=== PATIENT | female | born 2000 | race American Indian/Alaskan Native ===

== ENCOUNTER 2020-08-30 01:05 | Inpatient (IN) | payer MEDICAID, OTHER ==
[2020-08-30] MEDS ORDERED: ONDANSETRON 4 MG/2 ML INJ IV PRN ×2 (02:11→04:56)
[2020-08-30] MEDS ORDERED: miSOPROStol 200 MCG TAB PR PRN (02:11)
[2020-08-30] MEDS ORDERED: METHYLERGONOVINE MALEATE 0.2 MG/ML VIAL IM PRN (02:11)
[2020-08-30] MEDS ORDERED: CARBOPROST TROMETHAMINE 250 MCG/1 ML INJ IM PRN (02:11)
[2020-08-30] MEDS ORDERED: BUTORPHANOL 2 MG/1 ML INJ IV PRN (02:11)
[2020-08-30] MEDS ORDERED: OXYTOCIN 10 UNIT/1 ML INJ IM PRN (02:11)
[2020-08-30] MEDS ORDERED: MINERAL OIL 30 ML ORAL LIQD PO PRN (02:11)
[2020-08-30] MEDS ORDERED: ePHEDrine SULFATE 50 MG/1 ML INJ IV PRN ×2 (02:11→03:48)
[2020-08-30] MEDS ORDERED: TERBUTALINE 1 MG/1 ML INJ SUB-Q PRN (02:11)
[2020-08-30] MEDS ORDERED: LIDOCAINE (2%) 20 MG/1 ML VIAL 20 ML MDV INFILTRATI ONE (02:11)
[2020-08-30] MEDS ORDERED: AMPICILLIN/NS 2 GM/100 ML 2 GM/100 ML BAG IV ONE (02:11)
[2020-08-30] MEDS ORDERED: LOPERAMIDE 2 MG CAP PO PRN (02:11)
[2020-08-30] MEDS ORDERED: LACTATED RINGERS 1,000 ML IV SCH (02:15)
[2020-08-30 02:50] LABS: Hemoglobin 8.6 gm/dl (10.1-14.3); Mean Corpuscular HGB Conc 32 % (30-34); Mean Corpuscular Volume 74 fl (79-97); Platelet Count 209 K/mm3 (140-440); Red Blood Count 3.64 M/mm3 (3.65-5.03)
[2020-08-30 02:51] LABS: Red Cell Distribution Width 22.6 % (13.2-15.2)
[2020-08-30] MEDS ORDERED: OXYTOCIN DRIP 30 UNITS/500 ML BAG IV SCH (03:00)
--- NOTE | 2020-08-30 03:41 | Anesthesia Consultation ---
Anesthesia Consult and Med Hx Date of service: 08/30/20 - Airway Anesthetic Teeth Evaluation: Poor Mental/Hyoid Distance: Adequate Mallampati Class: Class II Intubation Access Assessment: Probably Good - Pulmonary Exam CTA: Yes - Cardiac Exam Cardiac Exam: RRR - Pre-Operative Health Status ASA Pre-Surgery Classification: ASA2 Proposed Anesthetic Plan: Epidural - Pulmonary Hx Smoking: No Hx Asthma: Yes (last attack as a child) Hx Respiratory Symptoms: No SOB: No COPD: No Home Oxygen Therapy: No Hx Pneumonia: No Hx Sleep Apnea: No - Cardiovascular System Hx Hypertension: No Hx Coronary Artery Disease: No Hx Heart Attack/AMI: No Hx Angina: No Hx Percutaneous Transluminal Coronary Angioplasty (PTCA): No Hx Cardia Arrhythmia: No Hx Pacemaker: No Hx Internal Defibrillator: No Hx Valvular Heart Disease: No Hx Heart Murmur: No Hx Peripheral Vascular Disease: No - Central Nervous System Hx Neuromuscular Disorder: No Hx Seizures: No CVA: No Hx Back Pain: Yes Hx Psychiatric Problems: No - Gastrointestinal Hx Ulcer: No Hx Gastroesophageal Reflux Disease: Yes - Endocrine Hx Renal Disease: No Hx End Stage Renal Disease: No Hx Cirrhosis: No Hx Liver Disease: No Hx Insulin Dependent Diabetes: No Hx Non-Insulin Dependent Diabetes: No Hx Thyroid Disease: No Hx Hypothyroidism: No Hx Hyperthyroidism: No - Hematic Hx Anemia: Yes Hx Sickle Cell Disease: No - Other Systems Hx Alcohol Use: No Hx Substance Use: No Hx Cancer: No Hx Obesity: No
--- NOTE | 2020-08-30 03:42 | Progress Note ---
Labor Epidural - Labor Epidural Start Time: 03:17 Stop Time: 03:27 Performed by:: MANOHAR COTE Procedure: Patient is requesting a laboring epidural for laboring pain. Patient IDed, H&P reviewed, all questions and concerns were answered, and consent was signed. Timeout was performed at bedside. Patient in sitting position. Sterile prep and drape was performed. [3] ml of 1% lidocaine skin wheal at L[3]- L [4]. 18- gauge Tuohy epidural needle was advanced to loss of resistance with saline technique 6cm. Negative CSF negative blood. Epidural catheter advanced to [10] centimeters. [NEGATIVE] Aspiration [NEGATIVE] test dose. Sterile dressing applied. Patient tolerated procedure.
[2020-08-30] MEDS ORDERED: NALOXONE 2 MG/2 ML INJ IV PRN (03:48)
[2020-08-30] MEDS ORDERED: fentaNYL-BUPIV 2 MCG/ML-0.125% 200 MCG/100 ML BAG EPIDURAL SCH (04:00)
--- NOTE | 2020-08-30 04:53 | History and Physical Report ---
History of Present Illness Date of examination: 08/30/20 Date of admission: 08/30/20 02:11 Chief complaint: Contractions History of present illness: 19-year-old G1, P0 at 40+0 weeks who presents in active labor with advanced cervical dilatation. The patient to denies leakage of fluid. records are currently unavailable for review. Past History Past Medical History: asthma Past Surgical History: no surgical history Social history: single - Obstetrical History Expected Date of Delivery: 08/30/20 Actual Gestation: 40 Week(s) 0 Day(s) : 1 Para: 0 Hx # Term Pregnancies: 0 Number of Pregnancies: 0 Spontaneous Abortions: 0 Induced : 0 Number of Living Children: 0 Medications and Allergies Allergies Allergy/AdvReac Type Severity Reaction Status Date / Time No Known Allergies Allergy Verified 08/30/20 02:15 Active Meds: Active Medications Butorphanol Tartrate (Butorphanol 2 Mg/1 Ml Inj) 2 mg IV Q2H PRN PRN Reason: Pain , Severe (7-10) Carboprost Tromethamine (Carboprost Tromethamine 250 Mcg/1 Ml Inj) 250 mcg IM ONCE PRN PRN Reason: Uterine Bleeding Ephedrine Sulfate (Ephedrine Sulfate 50 Mg/1 Ml Inj) 10 mg IV Q2M PRN PRN Reason: Hypotension Ephedrine Sulfate (Ephedrine Sulfate 50 Mg/1 Ml Inj) 10 mg IV Q2M PRN PRN Reason: Hypotension Lactated Ringer's (Lactated Ringers) 1,000 mls @ 125 mls/hr IV DIRECT KENDALL Last Admin: 08/30/20 03:22 Dose: 125 mls/hr Documented by: Oxytocin/Sodium Chloride (Pitocin/Ns 30 Unit/500ml) 30 units in 500 mls @ 40 mls/hr IV TITR KENDALL; Protocol Fentanyl/Bupivacaine/Sodium Chlor (Fentanyl-Bupiv 2 Mcg/Ml-0.125%) 200 mcg in 100 mls @ 12 mls/hr EPIDURAL TITR KENDALL; Protocol Loperamide HCl (Loperamide 2 Mg Cap) 2 mg PO ONCE PRN PRN Reason: give with Hemabate Methylergonovine Maleate (Methylergonovine Maleate 0.2 Mg/Ml Vial) 0.2 mg IM ONCE PRN PRN Reason: Uterine Bleeding Mineral Oil (Mineral Oil 30 Ml Oral Liqd) 30 ml PO QHS PRN PRN Reason: Constipation Misoprostol (Misoprostol 200 Mcg Tab) 800 mcg RI ONCE PRN PRN Reason: Uterine Bleeding Naloxone HCl (Naloxone 2 Mg/2 Ml Inj) 0.2 mg IV Q5M PRN PRN Reason: Respiratory sedation Ondansetron HCl (Ondansetron 4 Mg/2 Ml Inj) 4 mg IV Q8H PRN PRN Reason: Nausea And Vomiting Oxytocin (Oxytocin 10 Unit/1 Ml Inj) 10 unit IM ONCE PRN PRN Reason: Uterine Bleeding Terbutaline Sulfate (Terbutaline 1 Mg/1 Ml Inj) 0.25 mg SUB-Q ONCE PRN PRN Reason: Hyperstimulation/Hypertonicity Review of Systems All systems: negative Genitourinary: pelvic pain, contractions - Vital Signs Vital signs: Vital Signs Pulse BP Pulse Ox 75 138/90 100 08/30/20 01:32 08/30/20 01:32 08/30/20 01:32 Temp Pulse Resp BP Pulse Ox 98.2 F 75 18 147/66 100 08/30/20 01:33 08/30/20 03:35 08/30/20 01:33 08/30/20 03:35 08/30/20 02:17 - Physical Exam Breasts: Positive: deferred Cardiovascular: Regular rate Lungs: Positive: Clear to auscultation Abdomen: Positive: normal appearance Results Result Diagrams: 08/30/20 02:15 Abnormal lab results 08/30/20 Range/Units 02:15 RBC 3.64 L (3.65-5.03) M/mm3 Hgb 8.6 L (10.1-14.3) gm/dl Hct 27.0 L (30.3-42.9) % MCV 74 L (79-97) fl MCH 24 L (28-32) pg RDW 22.6 H (13.2-15.2) % All other labs normal. Assessment and Plan - Patient Problems (1) Active labor at term Current Visit: Yes Status: Acute Plan to address problem: Admit to labor and delivery Initiate IV antibiotics
--- NOTE | 2020-08-30 04:55 | Procedure Note ---
OB Delivery Note - Delivery Date of Delivery: 08/30/20 Surgeon: GEOVANNA ASKEW Estimated blood loss: other (250ml) - Vaginal Delivery presentation: vertex Delivery position: OA Delivery monitor: external FHT, external uterine Route of delivery: Delivery placenta: spontaneous Delivery cord: 3 umbilical vessels Episiotomy: none Delivery laceration: none Anesthesia: epidural Delivery comments: The patient progressed to complete complete +2. Amniotomy was performed with evidence of clear fluid. The patient pushed to deliver a live-born female with Apgars of 8 and 9 weight 7 pounds 2 ounces. After delivery of the head the shoulders delivered without difficulty. The was bulb suctioned and the cord was clamped and cut and the was placed on the patient's abdomen. The placenta delivered spontaneously intact with a three-vessel cord. No lacerations were noted. Estimated blood loss of 250 mL - Infant A at 1 minute: 8 at 5 minutes: 9 Infant Gender: Female (Weight 7 pounds 2 ounces)
[2020-08-30] MEDS ORDERED: diphenhydrAMINE 25 MG CAP PO PRN (04:56)
[2020-08-30] MEDS ORDERED: PROMETHAZINE 25 MG TAB PO PRN (04:56)
[2020-08-30] MEDS ORDERED: ACETAMINOPHEN 325 MG TAB PO PRN (04:56)
[2020-08-30] MEDS ORDERED: LANOLIN/ZINC/DIMETHICONE (LANSINOH) 7 GM TP PRN (04:56)
[2020-08-30] MEDS ORDERED: MAGNESIUM HYDROXIDE (MOM) ORAL LIQD UDC PO PRN (04:56)
[2020-08-30] MEDS ORDERED: WITCH HAZEL/ GLYCERIN PAD TP PRN (04:56)
[2020-08-30] MEDS ORDERED: PROMETHAZINE 25 MG RECT SUPP PR PRN (04:56)
[2020-08-30] MEDS ORDERED: HYDROcodone/ACETAMINOPHEN 5-325 MG TAB PO PRN (04:56)
[2020-08-30] MEDS: IBUPROFEN 600 MG TAB PO SCH ×2 (06:19→14:15)
--- NOTE | 2020-08-30 12:44 | Post Anesthesia Evaluation ---
- Post Anesthesia Evaluation Patient Participated: Yes Airway Patent: Yes Stable Respiratory Function: Yes Nausea/Vomiting: No Temp > 96.8F: Yes Pain Manageable: Yes Adequeate Hydration: Yes Anesthesia Complications: No Block Receding Appropriately: Yes Patient on Ventilator: No
[2020-08-30 16:16] LABS: Hematocrit 23.5 % (30.3-42.9); Hemoglobin 7.3 gm/dl (10.1-14.3)
--- NOTE | 2020-08-31 07:54 | Progress Note ---
Assessment and Plan - Patient Problems (1) Status post normal vaginal delivery Current Visit: Yes Status: Acute Plan to address problem: Pt desires to go home today F/U in office in 6 weeks for routine PPV (2) Anemia Current Visit: Yes Status: Acute Qualifiers: Anemia type: iron deficiency Plan to address problem: Asymptomatic Continue prescribed iron supplementation as directed Increase iron rich foods into diet Subjective - Subjective Date of service: 08/31/20 Principal diagnosis: S/P ; PPD#1 Interval history: 19-year-old G1, P0 at 40+0 weeks who presents in active labor with advanced cervical dilatation. Went on to deliver viable female infant. Patient reports: appetite normal, voiding normally, pain well controlled, flatus, ambulating normally [place]: doing well, nursing well Objective - Vital Signs Latest vital signs: Vital Signs Temp Pulse Resp BP BP Pulse Ox 08/30/20 23:33 98.5 F 79 20 109/73 99 08/30/20 15:33 98.5 F 80 20 131/81 98 08/30/20 12:20 98.5 F 77 18 128/79 97 Intake and Output 08/30/20 08/30/20 08/31/20 15:59 23:59 07:59 Intake Total 120 240 Output Total 500 Balance -380 240 Intake: Oral 120 240 Output: Urine 500 Void 500 Other: Total, Intake Amount 120 240 Total, Output Amount 500 - Exam Breasts: Present: normal Cardiovascular: Present: Regular rate Lungs: Present: Normal air movement Abdomen: Present: soft Uterus: Present: firm, fundal height below umbilicus (U-3) Extremities: Present: tenderness Deep Tendon Reflex Grade: Normal +2 - Labs Labs: Abnormal lab results 08/30/20 Range/Units 15:48 Hgb 7.3 L (10.1-14.3) gm/dl Hct 23.5 L (30.3-42.9) %
--- NOTE | 2020-08-31 08:04 | Discharge Summary ---
Providers - Providers Date of Admission: 08/30/20 02:11 Date of discharge: 08/31/20 Attending physician: GEOVANNA ASKEW Primary care physician: GEOVANNA ASKEW Hospitalization Reason for admission: active labor Delivery: Episiotomy: none Laceration: none Other procedures: none complications: none Discharge diagnosis: IUP at term delivered baby: female Hospital course: 19-year-old G1, P0 at 40+0 weeks who presents in active labor with advanced cervical dilatation, went on to deliver viable female infant. Condition at discharge: Stable Disposition: DC-01 TO HOME OR SELFCARE - Discharge Diagnoses (1) Status post normal vaginal delivery Status: Acute (2) Anemia Status: Acute Qualifiers: Anemia type: iron deficiency Comment: Asymptomatic Continue prescribed daily iron supplementation as directed Plan - Discharge Medications Prescriptions: Ferrous Sulfate [Feosol 325 MG tab] 325 mg PO BID 30 Days #60 tablet - Provider Discharge Summary Activity: routine, no sex for 6 weeks, no heavy lifting 4 weeks, no strenuous exercise Diet: other (Iron rich diet) Instructions: routine Additional instructions: [] Smoking cessation referral if applicable(refer to patient education folder for contact #) [] Refer to [facility] Booklet Call your doctor immediately for: * Fever > 100.5 * Heavy vaginal bleeding ( >1 pad per hour) * Severe persistent headache * Shortness of breath * Reddened, hot, painful area to leg or breast - Follow up plan Follow up: GEOVANNA ASKEW MD [Primary Care Provider] - 6 Weeks
[2020-08-31] MEDS ORDERED: FERROUS SULFATE 325 MG TAB PO SCH (10:00)
[2020-08-31] MEDS: IBUPROFEN 600 MG TAB PO SCH (10:26)
[2020-08-31 13:35] VITALS: BP 142/78
== END 2020-08-31 15:05 | disposition home or self-care (01) | DRG 807 ==
LOC: TRG 01:05 → APU 01:10 → TRG 02:11 → LD 02:11 → OB 06:10
PROVIDERS: ADMIT Obstetrics & Gynecology; ATTEND Obstetrics & Gynecology
PROC: 10E0XZZ Delivery of Products of Conception, External Approach (ICD-10-PCS; principal; 2020-08-30)
PROC: 3E0R3BZ Introduction of Anesthetic Agent into Spinal Canal, Percutaneous Approach (ICD-10-PCS; 2020-08-30)
PROC: 00HU33Z Insertion of Infusion Device into Spinal Canal, Percutaneous Approach (ICD-10-PCS; 2020-08-30)
DX: O99.62 Diseases of the digestive system complicating childbirth (principal); Z37.0 Single live birth; O99.02 Anemia complicating childbirth; D50.8 Other iron deficiency anemias; Z20.822 Contact with and (suspected) exposure to COVID-19; O99.52 Diseases of the respiratory system complicating childbirth; J45.909 Unspecified asthma, uncomplicated; K21.9 Gastro-esophageal reflux disease without esophagitis; Z3A.40 40 weeks gestation of pregnancy
CPT/HCPCS: 36415; 59025; 85014; 85018; 85027; 86592; 86850; 86900; 86901; G0378; J0290; J7120; U0003